=== PATIENT | female | born 1985 | race Caucasian/White ===

== ENCOUNTER → 2018-07-03 | Outpatient (CLI) | payer BC ==
[~2018-07-03] MED LIST: EUTIROX PO
== END ==
LOC: COL.RAD 10:27
DX: K76.0 Fatty (change of) liver, not elsewhere classified (principal)

== ENCOUNTER → 2018-07-10 | Outpatient (CLI) | payer BC | LOC: COL.RAD 09:55 | DX: R10.11 Right upper quadrant pain (principal) | CPT/HCPCS: A9537 ==

== ENCOUNTER → 2019-02-20 | Outpatient (CLI) | payer BC | LOC: MC.RAD 12:44 | DX: N60.01 Solitary cyst of right breast (principal) ==

== ENCOUNTER → 2019-12-06 | Outpatient (CLI) | payer BC | LOC: MC.RAD 13:52 | DX: R22.2 Localized swelling, mass and lump, trunk (principal) ==

== ENCOUNTER 2020-10-03 05:50 | Emergency (ER) | payer BC ==
[~2020-10-03] VITALS: Ht 162.6 cm; Wt 68.2 kg
[2020-10-03 06:07] VITALS: TEMP 99
[2020-10-03 06:29] LABS: COLLECTION METHOD CLEAN CATCH
[2020-10-03 06:37] LABS: MUCOUS Present /lpf; PH 6 (5-8); URINE APPEARANCE Hazy; URINE BACTERIA None Seen /hpf; URINE BILIRUBIN Negative (NEGATIVE); URINE BLOOD 3+ (NEGATIVE); URINE COLOR Yellow; URINE GLUCOSE Negative (NEGATIVE); URINE KETONE Negative (NEGATIVE); URINE LEUKOCYTE ESTERASE Negative (NEGATIVE); URINE NITRATE Negative (NEGATIVE); URINE PROTEIN(semi-quant) 2+ (NEGATIVE); URINE UROBILINOGEN Negative (NEGATIVE)
[2020-10-03 07:47] LABS: HEMOGLOBIN 12.7 g/dl (12.5-16.0); MEAN CELL VOLUME 78 fl (80.0-100.0); MEAN CORPUSCULAR HEMOGLOBIN 26 pg (27.0-31.0); MEAN CORPUSCULAR HGB CONC 33 g/dl (33.0-37.0); MEAN PLATELET VOLUME 9.3 fl (7.4-10.4); PLATELET COUNT 351 K/mm3 (130-400); RED BLOOD COUNT 4.86 M/mm3 (4.10-5.30)
[2020-10-03 07:57] LABS: BILIRUBIN,TOTAL 0.2 mg/dL (0.0-1.0); CALCIUM 8.9 mg/dL (8.4-10.2); CREATININE, serum 0.72 (0.52-1.25); TOTAL PROTEIN 7.3 gm/dL (6.4-8.2)
[2020-10-03 07:59] LABS: POTASSIUM 2.3 mmol/L (3.4-5.0)
[2020-10-03 08:12] LABS: BAND 7 % (0-10); BASOPHIL 1 % (0-2); LYMPHOCYTE 12 % (20.0-51.0); NEUTROPHILS 75 % (42.0-75.2); PLATELET ESTIMATE NORMAL (NORMAL)
[2020-10-03] MEDS ORDERED: CIPRO750 MG PO (08:22)
[2020-10-03 09:25] VITALS: BP 108/69; PULSE 65
== END 2020-10-03 09:29 | disposition home or self-care (01) ==
LOC: COL.ER 05:50
PROVIDERS: Emergency Medicine
DX: K64.8 Other hemorrhoids (principal); A09 Infectious gastroenteritis and colitis, unspecified; E87.6 Hypokalemia; I10 Essential (primary) hypertension; Z20.822 Contact with and (suspected) exposure to COVID-19; E03.9 Hypothyroidism, unspecified; Z79.890 Hormone replacement therapy
CPT/HCPCS: J7030

== ENCOUNTER → 2021-07-24 | Outpatient (CLI) | payer BC ==
[~2021-07-24] MED LIST changes: +CIPRO750 MG PO
== END ==
LOC: COL.RAD 07:22
DX: K76.0 Fatty (change of) liver, not elsewhere classified (principal)